=== PATIENT | male | born 1955 | race Caucasian/White ===

== ENCOUNTER → 2021-07-08 16:45 | Outpatient (BNVA) | payer MEDICARE, BC, SELFPAY | PROVIDERS: Family Provider Physician Assistant Medical; PCP Physician Assistant Medical; Visit Provider Surgery | DX: K63.5 Polyp of colon (principal); L98.9 Disorder of the skin and subcutaneous tissue, unspecified | CPT/HCPCS: 88304 ==

== ENCOUNTER → 2021-09-01 11:36 | Outpatient (BNVA) | payer MEDICARE, BC, SELFPAY | PROVIDERS: Family Provider Physician Assistant Medical; PCP Physician Assistant Medical; Visit Provider Surgery | DX: Z20.822 Contact with and (suspected) exposure to COVID-19 (principal) | CPT/HCPCS: 87635 ==

== ENCOUNTER 2021-09-05 06:29 | Day surgery (SDC) | payer MEDICARE, BC, SELFPAY ==
[2021-09-01 16:09] VITALS: BMI 28.7
[2021-09-05 06:53] VITALS: BP 129/83; PULSE 73; RESP 18; TEMP 36.2; O2SAT 99
--- NOTE | 2021-09-05 07:10 | ANES.PREANE2 ---
Pre-Anesthetic Assessment Pre-Anesthetic Assessment: Height/Weight: Height 1.78 m Weight 90.718 kg Temp Pulse Resp BP Pulse Ox 97.2 F L 73 18 129/83 99 09/05/21 06:53 09/05/21 06:53 09/05/21 06:53 09/05/21 06:53 09/05/21 06:53 Preop Diagnosis: screening colonoscopy Proposed Procedure: Operation Date: 09/05/21 08:00 Proposed Procedures p Colonoscopy 30496 K63.5(Not Applicable) - Zach Ellis MD Familial anesthetic complications: none Was Beta Jordan taken within 24 hours: N/A Was Clonidine taken within 24 hours: N/A Last Intake: 20:00 Social: Social History: No alcohol and No tobacco Exam: Pre-Anes Outpt Exam: alert, oriented x 3, clear to auscultation bilaterally and regular rate & rhythm Airway: Submandibular: WNL Cervical ROM: WNL MP: 3 Dentition: Full Pulmonary: Pulmonary: None reported CV/HEM: CV/HEM: None reported : : None reported Hepatic: Hepatic: None reported GI: GI: GERD and Hiatus hernia Metabolic: Metabolic: None reported Musc/skel: Musc/skel: None reported Neuropsych: Neuropsych: None reported Anesthetic Plan: ASA status: 2 Anesthesia: MAC Risk of > 500 ml blood loss (7ml/kg in children): No PFSH Anesthesia PFSH: Medical History Cochlear implant in place Colon polyps Prostate cancer Surgical History History of appendectomy History of colonoscopy History of prostatectomy Data Anesthesia Cardiac Studies: No Data to Display
[2021-09-05] MEDS: sodium chloride 0.9% 1,000 ML 30 ML IV (07:15)
--- NOTE | 2021-09-05 08:07 | W.PM.OPSFHP ---
Same Day Surgery H&P Indication for Procedure/HPI DATE OF PROCEDURE: September 05, 2021 CHIEF COMPLAINT/INDICATIONFOR SURGICAL PROCEDURE: colonoscopy PREOP DIAGNOSIS: screening colonoscopy PLANNED PROCEDRUE: Operation Date: 09/05/21 08:00 Proposed Procedures p Colonoscopy 91067 K63.5(Not Applicable) - Zach Ellis MD Medications/Allergies* Home Medications Medication Instructions Recorded Confirmed Type cetirizine 10 mg tablet 10 mg PO DAILY PRN 07/08/21 09/05/21 History omeprazole magnesium 20 mg 20 mg PO DAILY 07/08/21 09/05/21 History tablet,delayed release sildenafil 100 mg PO DIRECTED PRN 09/01/21 09/05/21 History Allergies/Adverse Reactions Allergy/AdvReac Type Severity Reaction Status Date / Time No Known Allergies Allergy Unverified 09/01/21 16:05 Current Medications: Generic Name Dose Route Start Last Admin Trade Name Freq PRN Reason Stop Dose Admin Sodium Chloride 1,000 mls @ 30 mls/hr 09/05/21 07:00 09/05/21 07:15 Sodium Chloride 0.9% IV 09/06/21 06:59 30 mls/hr .Q24H STEFFEN Administration Pertinent History/Comorbid Conditions* Medical History (Updated 07/09/21 @ 12:53 by Zach Ellis MD) Cochlear implant in place Colon polyps Prostate cancer Surgical History (Updated 07/08/21 @ 14:41 by Zach Ellis MD) History of appendectomy History of colonoscopy History of prostatectomy Pertinent Exam Findings alert, oriented x 3 and regular rate & rhythm Recommendations Surgery/Procedure today Coding Level of Care Code Acute [employer] for Linda Santiago
[2021-09-05 08:37] VITALS: BP 114/80; PULSE 67; RESP 16; TEMP 36.4; O2SAT 90
[2021-09-05 08:53] VITALS: BP 142/97; PULSE 56; RESP 18; O2SAT 96
--- NOTE | 2021-09-05 14:25 | ANE.PACU2 ---
Inpatient post-anesthesia follow up: Airway intact: Yes Vital signs: Temperature 97.5 F Pulse Rate 56 Respiratory Rate 18 Blood Pressure 142/97 Pulse Oximetry 96 Oxygen Delivery Me thod Room Air Oxygen Flow Rate Fraction of Inspir ed Oxygen Hydration adequate: Yes Nausea and vomiting: No Pain level: 1 Mental status: Baseline
== END 2021-09-05 09:15 | disposition home or self-care (01) ==
PROVIDERS: PCP Physician Assistant Medical; Visit Provider Surgery
PROC: 0DJD8ZZ Inspection of Lower Intestinal Tract, Via Natural or Artificial Opening Endoscopic (ICD-10-PCS; CPT 45378; principal; 2021-09-05 08:00)
DX: Z12.11 Encounter for screening for malignant neoplasm of colon (principal); D12.2 Benign neoplasm of ascending colon; D12.0 Benign neoplasm of cecum; D12.5 Benign neoplasm of sigmoid colon; K57.30 Diverticulosis of large intestine without perforation or abscess without bleeding; K64.8 Other hemorrhoids
CPT/HCPCS: 45380; 88305; 96360; J2704; J7030

== ENCOUNTER → 2025-11-07 08:57 | Outpatient (BNVA) | payer MEDICARE, OTHER, SELFPAY | PROVIDERS: PCP Physician Assistant Medical; Visit Provider Dermatology | DX: R20.2 Paresthesia of skin (principal); D18.01 Hemangioma of skin and subcutaneous tissue; L57.0 Actinic keratosis | CPT/HCPCS: 17000; 99203 ==